=== PATIENT | female | born 1985 | race Caucasian/White ===

== ENCOUNTER 2018-12-01 14:57 | Emergency (ER) | payer BC ==
[2018-12-01 16:03] LABS: ABS Basophils 0.1 10^3/ul (0-0.2); ABS Eosinophils 0.1 10^3/ul (0-0.6); ABS Lymphocytes 2.5 10^3/ul (1.0-4.8); ABS Monocytes 0.6 10^3/ul (0-0.8); ABS Neutrophils 3.8 10^3/ul (1.5-7.7); ABS Nucleated RBC 0 10^3/ul; Eosinophil % 1.5 %; Hematocrit 38 % (35-47); Hemoglobin 13.2 g/dl (12.0-16.0); Lymphocyte % 35.1 %; Mean Corpuscular HGB Conc 35 g/dl (31-36); Mean Corpuscular Hemoglobin 28 pg (27-31); Mean Corpuscular Volume 81 fL (80-97); Mean Platelet Volume 7.3 fL (7.4-10.4); Nucleated Red Blood Cells % 0; Platelet Count 279 10^3/ul (150-450); Red Blood Count 4.71 10^6/ul (4.00-5.40); Red Cell Distribution Width 15 % (10.5-15)
[2018-12-01 16:20] LABS: ALT 43 U/L (7-52); AST 28 U/L (13-39); Albumin/Globulin Ratio 1.7 (1-3); Alkaline Phosphatase 33 U/L (34-104); Anion Gap 10 mmol/L (2-11); BUN/Creatinine Ratio 16.8 (8-20); Blood Urea Nitrogen 16 mg/dL (6-24); CO2 Carbon Dioxide 24 mmol/L (22-32); Calcium 10.2 mg/dL (8.6-10.3); Chloride 103 mmol/L (101-111); EGFR Non-African American 68.2 (>60); Globulin 2.9 g/dL (2-4); Glucose 94 mg/dL (70-100); Sodium 137 mmol/L (135-145); Total Protein 7.9 g/dL (6.4-8.9)
[2018-12-01 16:26] LABS: HCG Pregnancy < 0.60 mIU/mL
[2018-12-01 16:30] LABS: Activated Partial Thrombo Time 32.5 seconds (26.0-36.3); INR 0.94 (0.77-1.02)
--- NOTE | 2018-12-01 19:33 | ED ---
HPI Chest Pain - HPI Summary HPI Summary: Patient complains of 4 episodes of chest tightness and palpitations today. Symptoms are intermittent, random onset, not related to exertion, lasting 1-2 seconds at a time. Patient states history of same, diagnosed with PACs by primary care. Patient denies fever, cough, sore throat, SOB, N/V/D, abdominal pain, change in urine, change in BM. Medical history is HTN, HDL. Nonsmoker. Denies EtOH, recreational drug use, excessive caffeine or energy drinks. - History of Current Complaint Chief Complaint: EDChestPainROMI Time Seen by Provider: 12/01/18 15:37 Hx Obtained From: Patient Onset/Duration: Started Hours Ago Timing: Intermittent, Lasting Seconds Initial Severity: Moderate Current Severity: Moderate Pain Intensity: 6 Pain Scale Used: 0-10 Numeric Chest Pain Location: Mid Sternal Chest Pain Radiates: No Character: Sharp/Stabbing Aggravating Factor(s): Nothing Alleviating Factor(s): Nothing Associated Signs and Symptoms: Positive: Chest Pain - Allergy/Home Medications Allergies/Adverse Reactions: Allergies Allergy/AdvReac Type Severity Reaction Status Date / Time No Known Allergies Allergy Verified 12/01/18 16:00 Home Medications: Home Medications Gemfibrozil 600 mg PO DAILY 12/01/18 [History Confirmed 12/01/18] Labetalol HCl 100 mg PO BID 12/01/18 [History Confirmed 12/01/18] amLODIPine TAB* [Norvasc 5 mg TAB*] 5 mg PO DAILY 12/01/18 [History Confirmed ] PMH/Surg Hx/FS Hx/Imm Hx Endocrine/Hematology History: Denies: Hx Anticoagulant Therapy Cardiovascular History: Reports: Hx Hypertension History: Denies: Hx Dialysis Sensory History: Denies: Hx Eye Prosthesis EENT History: Denies: Hx Deafness Neurological History: Denies: Hx Developmental Delay Psychiatric History: Denies: Hx Autism Infectious Disease History: No Infectious Disease History: Denies: Traveled Outside the [place] in Last 30 Days - Social History Alcohol Use: Rare Substance Use Type: Reports: None Smoking Status (MU): Never Smoked Tobacco Review of Systems Constitutional: Negative Eyes: Negative ENT: Negative Positive: Chest Pain Respiratory: Negative Gastrointestinal: Negative Genitourinary: Negative Musculoskeletal: Negative Skin: Negative Neurological: Negative Psychological: Normal All Other Systems Reviewed And Are Negative: Yes Physical Exam - Summary Physical Exam Summary: Chest pain not reproducible. Triage Information Reviewed: Yes Vital Signs On Initial Exam: Initial Vitals Temp Pulse Resp BP Pulse Ox 99.1 F 98 16 197/122 98 12/01/18 14:58 12/01/18 14:58 12/01/18 14:58 12/01/18 14:58 12/01/18 14:58 Vital Signs Reviewed: Yes Appearance: Positive: Well-Appearing Skin: Positive: Warm Head/Face: Positive: Normal Head/Face Inspection Eyes: Positive: Normal Neck: Positive: Supple Respiratory/Lung Sounds: Positive: Clear to Auscultation Cardiovascular: Positive: Normal Abdomen Description: Positive: Nontender Musculoskeletal: Positive: Normal Neurological: Positive: Normal Psychiatric: Positive: Normal AVPU Assessment: Alert - [place] Coma Scale Best Eye Response: 4 - Spontaneous Best Motor Response: 6 - Obeys Commands Best Verbal Response: 5 - Oriented Coma Scale Total: 15 Diagnostics - Vital Signs Vital Signs Temp Pulse Resp BP Pulse Ox 12/01/18 19:16 87 23 145/89 96 12/01/18 19:00 88 22 97 12/01/18 18:46 85 20 152/89 98 12/01/18 18:16 84 19 160/94 96 12/01/18 18:00 82 20 98 12/01/18 17:46 89 26 162/92 97 12/01/18 17:16 87 21 165/96 97 12/01/18 17:00 87 19 96 12/01/18 16:46 82 18 163/79 96 12/01/18 16:16 98 19 155/84 99 12/01/18 16:06 78 14 156/91 98 12/01/18 16:00 88 22 97 12/01/18 15:46 85 96 12/01/18 15:45 94 97 12/01/18 14:58 99.1 F 98 16 197/122 98 - Laboratory Lab Results: Lab Results 12/01/18 12/01/18 12/01/18 Range/Units 15:02 15:02 15:02 WBC 7.0 (3.5-10.8) 10^3/ul RBC 4.71 (4.00-5.40) 10^6/ul Hgb 13.2 (12.0-16.0) g/dl Hct 38 (35-47) % MCV 81 (80-97) fL MCH 28 (27-31) pg MCHC 35 (31-36) g/dl RDW 15 (10.5-15) % Plt Count 279 (150-450) 10^3/ul MPV 7.3 L (7.4-10.4) fL Neut % (Auto) 54.2 % Lymph % (Auto) 35.1 % [place] % (Auto) 8.1 % Eos % (Auto) 1.5 % Baso % (Auto) 1.1 % Absolute Neuts (auto) 3.8 (1.5-7.7) 10^3/ul Absolute Lymphs (auto) 2.5 (1.0-4.8) 10^3/ul Absolute Monos (auto) 0.6 (0-0.8) 10^3/ul Absolute Eos (auto) 0.1 (0-0.6) 10^3/ul Absolute Basos (auto) 0.1 (0-0.2) 10^3/ul Absolute Nucleated RBC 0 10^3/ul Nucleated RBC % 0 INR (Anticoag Therapy) (0.77-1.02) APTT (26.0-36.3) seconds D-Dimer, Quantitative (Less Than 230) ng/mL Sodium 137 (135-145) mmol/L Potassium 4.0 (3.5-5.0) mmol/L Chloride 103 (101-111) mmol/L Carbon Dioxide 24 (22-32) mmol/L Anion Gap 10 (2-11) mmol/L BUN 16 (6-24) mg/dL Creatinine 0.95 (0.51-0.95) mg/dL Est GFR ( Amer) 82.5 (>60) Est GFR (Non-Af Amer) 68.2 (>60) BUN/Creatinine Ratio 16.8 (8-20) Glucose 94 (70-100) mg/dL Lactic Acid 1.5 (0.5-2.0) mmol/L Calcium 10.2 (8.6-10.3) mg/dL Magnesium 2.0 (1.9-2.7) mg/dL Total Bilirubin 0.30 (0.2-1.0) mg/dL AST 28 (13-39) U/L ALT 43 (7-52) U/L Alkaline Phosphatase 33 L (34-104) U/L Troponin I 0.00 (<0.04) ng/mL B-Natriuretic Peptide (<=100) pg/mL Total Protein 7.9 (6.4-8.9) g/dL Albumin 5.0 (3.2-5.2) g/dL Globulin 2.9 (2-4) g/dL Albumin/Globulin Ratio 1.7 (1-3) Beta HCG, Quant < 0.60 mIU/mL 12/01/18 12/01/18 12/01/18 Range/Units 15:02 15:02 17:49 WBC (3.5-10.8) 10^3/ul RBC (4.00-5.40) 10^6/ul Hgb (12.0-16.0) g/dl Hct (35-47) % MCV (80-97) fL MCH (27-31) pg MCHC (31-36) g/dl RDW (10.5-15) % Plt Count (150-450) 10^3/ul MPV (7.4-10.4) fL Neut % (Auto) % Lymph % (Auto) % [place] % (Auto) % Eos % (Auto) % Baso % (Auto) % Absolute Neuts (auto) (1.5-7.7) 10^3/ul Absolute Lymphs (auto) (1.0-4.8) 10^3/ul Absolute Monos (auto) (0-0.8) 10^3/ul Absolute Eos (auto) (0-0.6) 10^3/ul Absolute Basos (auto) (0-0.2) 10^3/ul Absolute Nucleated RBC 10^3/ul Nucleated RBC % INR (Anticoag Therapy) 0.94 (0.77-1.02) APTT 32.5 (26.0-36.3) seconds D-Dimer, Quantitative < 200 (Less Than 230) ng/mL Sodium (135-145) mmol/L Potassium (3.5-5.0) mmol/L Chloride (101-111) mmol/L Carbon Dioxide (22-32) mmol/L Anion Gap (2-11) mmol/L BUN (6-24) mg/dL Creatinine (0.51-0.95) mg/dL Est GFR ( Amer) (>60) Est GFR (Non-Af Amer) (>60) BUN/Creatinine Ratio (8-20) Glucose (70-100) mg/dL Lactic Acid (0.5-2.0) mmol/L Calcium (8.6-10.3) mg/dL Magnesium (1.9-2.7) mg/dL Total Bilirubin (0.2-1.0) mg/dL AST (13-39) U/L ALT (7-52) U/L Alkaline Phosphatase (34-104) U/L Troponin I 0.00 (<0.04) ng/mL B-Natriuretic Peptide 9 (<=100) pg/mL Total Protein (6.4-8.9) g/dL Albumin (3.2-5.2) g/dL Globulin (2-4) g/dL Albumin/Globulin Ratio (1-3) Beta HCG, Quant mIU/mL Result Diagrams: 12/01/18 15:02 12/01/18 15:02 Lab Statement: Any lab studies that have been ordered have been reviewed, and results considered in the medical decision making process. Chest Pain Course/Dx - Course Course Of Treatment: Patient complains of 4 episodes of chest tightness and palpitations today. Symptoms are intermittent, random onset, not related to exertion, lasting 1-2 seconds at a time. Patient states history of same, diagnosed with PACs by primary care. Patient denies fever, cough, sore throat, SOB, N/V/D, abdominal pain, change in urine, change in BM. Medical history is HTN, HDL. Nonsmoker. Denies EtOH, recreational drug use, excessive caffeine or energy drinks. Denies OCP, history of blood clots, recent surgery or trauma , recent long travel. Physical exam: Chest pain not reproducible. Denies active symptoms while here in the ED. Vital signs within normal limits. EKG sinus rhythm with PACs. Chest x-ray unremarkable. Labs unremarkable. Serial troponins negative. Follow-up with primary care or cardiology for Holter monitor. Patient understands and approves of plan. - Diagnoses Provider Diagnoses: Atypical chest pain Discharge - Sign-Out/Discharge Documenting (check all that apply): Patient Departure - Discharge Plan Condition: Stable Disposition: HOME Patient Education Materials: Chest Pain (ED) Referrals: Cirilo Gorman MD [Primary Care Provider] - Additional Instructions: Follow-up with primary care or energy and sustainability manager Dr. Trent to arrange for Holter monitor. Return to the ED for any new or worsening symptoms - Billing Disposition and Condition Condition: STABLE Disposition: Home
[2018-12-01 19:48] VITALS: BP 144/87
== END 2018-12-01 19:48 | disposition home or self-care (01) ==
LOC: ED 14:57
DX: R07.89 Other chest pain (principal); I10 Essential (primary) hypertension; E78.5 Hyperlipidemia, unspecified
CPT/HCPCS: 36415; 71045; 80053; 83605; 83735; 83880; 84484; 84702; 85025; 85379; 85610; 85730; 93005; 99283

== ENCOUNTER 2019-03-20 23:11 | Emergency (ER) | payer BC ==
[2019-03-21] MEDS ORDERED: Labetalol TAB* 100 MG PO ONE (00:42)
[2019-03-21] MEDS ORDERED: Labetalol TAB* 200 MG ONE (00:52)
--- NOTE | 2019-03-21 00:53 | ED ---
HPI Chest Pain - HPI Summary HPI Summary: Pt is a 33 y/o F presenting to the ED with an episode of left sided chest pain starting at 2200 on 03/20/2019. Pt states that the pain was "sharp" and she felt " tingling" in her neck during the episode. Pt reports that the episode "lasted seconds". She rates the pain 5/10, Sx are no longer present. Sx were similar to an episode that occurred months ago. Pt denies N/V, diaphoresis and SOB. In Triage the Pt was hypertensive. Pt denies cardiac hx other than Htn and takes Labetalol 100 mg BID and Amlodipine 5 mg for Htn. Pt took her night dosage of Labetalol 100 mg prior to arrival to ED. Nothing is noted aggravate/alleviate Sx. - History of Current Complaint Chief Complaint: EDChestPainROMI Time Seen by Provider: 03/21/19 00:23 Hx Obtained From: Patient Onset/Duration: Started Hours Ago, Resolved Time of Onset: 22:00 Timing: Intermittent, Lasting Seconds Initial Severity: Moderate Current Severity: None Pain Intensity: 5 Pain Scale Used: 0-10 Numeric Chest Pain Location: Left Anterior Character: Sharp/Stabbing Aggravating Factor(s): Nothing Alleviating Factor(s): Nothing Associated Signs and Symptoms: Positive: Chest Pain, Tingling - AT NECK. Negative: Shortness of Breath, Diaphoresis, Nausea, Vomiting - Allergy/Home Medications Allergies/Adverse Reactions: Allergies Allergy/AdvReac Type Severity Reaction Status Date / Time No Known Allergies Allergy Verified 03/20/19 23:18 PMH/Surg Hx/FS Hx/Imm Hx Endocrine/Hematology History: Denies: Hx Anticoagulant Therapy Cardiovascular History: Reports: Hx Hypertension History: Denies: Hx Dialysis Sensory History: Denies: Hx Eye Prosthesis, Hx Deafness Opthamlomology History: Denies: Hx Eye Prosthesis Neurological History: Denies: Hx Developmental Delay Psychiatric History: Denies: Hx Autism Infectious Disease History: No Infectious Disease History: Denies: Traveled Outside the [place] in Last 30 Days - Family History Known Family History: Positive: Cardiac Disease - Social History Alcohol Use: Rare Substance Use Type: Reports: None Smoking Status (MU): Never Smoked Tobacco Review of Systems Negative: Skin Diaphoresis ENT: Other - "TINGLING" OF NECK Positive: Chest Pain - L SIDED Negative: Shortness Of Breath Negative: Vomiting, Nausea All Other Systems Reviewed And Are Negative: Yes Physical Exam - Summary Physical Exam Summary: VITAL SIGNS: Reviewed. GENERAL: Patient is a well-developed and nourished FEMALE who is lying comfortable in the stretcher. Patient is not in any acute respiratory distress. HEAD AND FACE: No signs of trauma. No ecchymosis, hematomas or skull depressions. No sinus tenderness. EYES: PERRLA, EOMI x 2, No injected conjunctiva, no nystagmus. EARS: Hearing grossly intact. Ear canals and tympanic membranes are within normal limits. MOUTH: Oropharynx within normal limits. NECK: Supple, trachea is midline, no adenopathy, no JVD, no carotid bruit, no c- spine tenderness, neck with full ROM CHEST: Symmetric, no tenderness at palpation LUNGS: Clear to auscultation bilaterally. No wheezing or crackles. CVS: Regular rate and rhythm, S1 and S2 present, no murmurs or gallops appreciated. ABDOMEN: Soft, non-tender. No signs of distention. No rebound no guarding, and no masses palpated. Bowel sounds are normal. EXTREMITIES: FROM in all major joints, no edema, no cyanosis or clubbing. NEURO: Alert and oriented x 3. No acute neurological deficits. Speech is normal and follows commands. SKIN: Dry and warm Triage Information Reviewed: Yes Vital Signs On Initial Exam: Initial Vitals Temp Pulse Resp BP Pulse Ox 98.0 F 92 16 170/111 99 03/20/19 23:13 03/20/19 23:13 03/20/19 23:13 03/20/19 23:13 03/20/19 23:13 Vital Signs Reviewed: Yes Diagnostics - Vital Signs Vital Signs Temp Pulse Resp BP Pulse Ox 03/20/19 23:13 98.0 F 92 16 170/111 99 - Laboratory Result Diagrams: 03/21/19 00:49 03/21/19 00:49 Lab Statement: Any lab studies that have been ordered have been reviewed, and results considered in the medical decision making process. - EKG No standard instances Summary of EKG Findings: EKG: sinus rhythm normal P axis, V-rate 60-99, normal EKG 2333 Cardiac Rate: NL - RATE OF 80 BPM EKG Rhythm: Sinus Rhythm Summary of EKG Findings: EKG showed sinus rhythm with rate of 80 BPM, normal axis, normal interval, no ischemic changes. Chest Pain Course/Dx - Course Course Of Treatment: Pt is a 33 y/o F presenting to the ED with an episode of left sided chest pain starting at 2200 on 03/20/2019. Pt states that the pain was "sharp" and she felt " tingling" in her neck during the episode. Pt reports that the episode "lasted seconds". She rates the pain 5/10, Sx are no longer present. Sx were similar to an episode that occurred months ago. Pt denies N/V, diaphoresis and SOB. In Triage the Pt was hypertensive. Pt denies cardiac hx other than HTN and takes Labetalol 100 mg BID and Amlodipine 5 mg for HTN. EKG shows sinus rhythm with rate of 80 BPM, normal axis, normal interval, and no ischemic changes. Plan of care and follow up with Primary Care Physician were discussed with the Pt who is agreeable with discharge to home. - Diagnoses Provider Diagnoses: Atypical chest pain Discharge - Sign-Out/Discharge Documenting (check all that apply): Patient Departure - discharge Patient Received Moderate/Deep Sedation with Procedure: No - Discharge Plan Condition: Stable Disposition: HOME Patient Education Materials: Chest Pain (ED) Referrals: Arianne Boone MD [Primary Care Provider] - 3 Days Additional Instructions: PLEASE RETURN TO THE ED IMMEDIATELY FOR WORSENING OR CONCERNING SYMPTOMS. FOLLOW UP WITH YOUR PRIMARY CARE PHYSICIAN WITHIN THE NEXT THREE DAYS. - Attestation Statements Document Initiated by Scribe: Yes Documenting Scribe: KRYSTAL SWIFT Provider For Whom Scribe is Documenting (Include Credential): GIOVANNI FERREIRA MD Scribe Attestation: KRYSTAL Cantu AND GULSHAN SWIFT, scribed for GIOVANNI FERREIRA MD on 03/21/19 at 0303. Status of Scribe Document: Ready
[2019-03-21 00:57] LABS: ABS Basophils 0.1 10^3/ul (0-0.2); ABS Eosinophils 0.1 10^3/ul (0-0.6); ABS Lymphocytes 2.9 10^3/ul (1.0-4.8); ABS Monocytes 0.7 10^3/ul (0-0.8); ABS Neutrophils 5.3 10^3/ul (1.5-7.7); Eosinophil % 0.8 %; Hematocrit 38 % (35-47); Hemoglobin 12.9 g/dL (12.0-16.0); Lymphocyte % 31.8 %; Mean Corpuscular HGB Conc 34 g/dL (31-36); Mean Corpuscular Hemoglobin 28 pg (27-31); Mean Corpuscular Volume 83 fL (80-97); Mean Platelet Volume 7.2 fL (7.4-10.4); Nucleated Red Blood Cells % 0.1; Platelet Count 288 10^3/uL (150-450); Red Blood Count 4.55 10^6 /uL (3.70-4.87); Red Cell Distribution Width 14 % (10.5-15); White Blood Count 9.1 10^3/uL (3.5-10.8)
[2019-03-21 01:14] LABS: ALT 15 U/L (7-52); Albumin 4.5 g/dL (3.2-5.2); Albumin/Globulin Ratio 1.6 (1-3); Alkaline Phosphatase 28 U/L (34-104); BUN/Creatinine Ratio 19.6 (8-20); Blood Urea Nitrogen 19 mg/dL (6-24); CO2 Carbon Dioxide 21 mmol/L (22-32); Calcium 9.7 mg/dL (8.6-10.3); Chloride 104 mmol/L (101-111); EGFR African American 80.5 (>60); EGFR Non-African American 66.6 (>60); Globulin 2.8 g/dL (2-4); Glucose 111 mg/dL (70-100); Sodium 135 mmol/L (135-145); Total Protein 7.3 g/dL (6.4-8.9)
[2019-03-21 01:21] LABS: HCG Pregnancy 2.81 mIU/mL
[2019-03-21 01:26] LABS: Activated Partial Thrombo Time 29.7 seconds (26.0-36.3); Anion Gap 10 mmol/L (2-11); INR 0.95 (0.82-1.09)
[2019-03-21 02:18] VITALS: BP 145/75
== END 2019-03-21 02:17 | disposition home or self-care (01) ==
LOC: ED 23:11
DX: R07.89 Other chest pain (principal); I10 Essential (primary) hypertension
CPT/HCPCS: 36415; 80053; 84484; 84702; 85025; 85610; 85730; 93005; 99282; A9270-GY

== ENCOUNTER → 2019-03-26 21:48 | Emergency (ER) | payer BC ==
--- NOTE | 2019-03-26 23:04 | ED ---
HPI Chest Pain - HPI Summary HPI Summary: Patient complains of episode of chest tightness, tingling in neck, tingling in left arm and left shoulder, lightheadedness 1 hour. Symptoms started at 8:30 and ended approximately 9:30pm. History of same times years. Patient states she will Holter monitor 2 years ago was diagnosed with PVCs. No active symptoms here in the ED. Denies recent CP or SOB with exertion. Admits to occasional similar symptoms with anxiety. Denies fever, cough, sore throat, SOB , N/V/D, abdominal pain, change in urine, change in BM. Medical is HTN. Currently taking prednisone for fertility is they are trying to become . Denies caffeine, energy drinks, methamphetamine, cocaine, EtOH. - History of Current Complaint Chief Complaint: EDDizziness Time Seen by Provider: 03/26/19 22:43 Hx Obtained From: Patient, Family/Political Worker Onset/Duration: Started Hours Ago Timing: Constant, Lasting Minutes Initial Severity: Moderate Current Severity: None Pain Intensity: 0 Pain Scale Used: 0-10 Numeric Chest Pain Location: Mid Sternal Chest Pain Radiates To:: Arm, Neck Character: Tightness Aggravating Factor(s): Nothing Alleviating Factor(s): Nothing Associated Signs and Symptoms: Positive: Chest Pain, Lightheadedness - Allergy/Home Medications Allergies/Adverse Reactions: Allergies Allergy/AdvReac Type Severity Reaction Status Date / Time No Known Allergies Allergy Verified 03/26/19 21:56 PMH/Surg Hx/FS Hx/Imm Hx Endocrine/Hematology History: Denies: Hx Anticoagulant Therapy Cardiovascular History: Reports: Hx Hypertension History: Denies: Hx Dialysis Sensory History: Denies: Hx Eye Prosthesis, Hx Deafness Opthamlomology History: Denies: Hx Eye Prosthesis Neurological History: Denies: Hx Developmental Delay Psychiatric History: Denies: Hx Autism Infectious Disease History: No Infectious Disease History: Denies: Traveled Outside the [place] in Last 30 Days - Family History Known Family History: Positive: Cardiac Disease - Social History Alcohol Use: Rare Substance Use Type: Reports: None Smoking Status (MU): Never Smoked Tobacco Review of Systems Constitutional: Negative Eyes: Negative ENT: Negative Positive: Chest Pain Respiratory: Negative Gastrointestinal: Negative Genitourinary: Negative Musculoskeletal: Negative Skin: Negative Neurological: Negative Psychological: Normal All Other Systems Reviewed And Are Negative: Yes Physical Exam - Summary Physical Exam Summary: Chest pain reproducible. Lung sounds clear to auscultation bilaterally. RRR. Abdomen soft nontender. No peripheral edema. Triage Information Reviewed: Yes Vital Signs On Initial Exam: Initial Vitals Temp Pulse Resp BP Pulse Ox 97.9 F 80 16 182/112 98 03/26/19 21:55 03/26/19 21:55 03/26/19 21:55 03/26/19 21:55 03/26/19 21:55 Vital Signs Reviewed: Yes Appearance: Positive: Well-Appearing Skin: Positive: Warm Head/Face: Positive: Normal Head/Face Inspection Eyes: Positive: Normal ENT: Positive: Normal ENT inspection Neck: Positive: Supple Respiratory/Lung Sounds: Positive: Clear to Auscultation Cardiovascular: Positive: Normal Abdomen Description: Positive: Nontender Musculoskeletal: Positive: Normal Neurological: Positive: Normal Psychiatric: Positive: Normal AVPU Assessment: Alert - [place] Coma Scale Best Eye Response: 4 - Spontaneous Best Motor Response: 6 - Obeys Commands Best Verbal Response: 5 - Oriented Coma Scale Total: 15 Diagnostics - Vital Signs Vital Signs Temp Pulse Resp BP Pulse Ox 03/26/19 21:55 97.9 F 80 16 182/112 98 - Laboratory Result Diagrams: 03/26/19 23:09 03/26/19 23:09 Lab Statement: Any lab studies that have been ordered have been reviewed, and results considered in the medical decision making process. Chest Pain Course/Dx - Course Course Of Treatment: Patient complains of episode of chest tightness, tingling in neck, tingling in left arm and left shoulder, lightheadedness 1 hour. Symptoms started at 8:30 and ended approximately 9:30pm. History of same times years. Patient states she will Holter monitor 2 years ago was diagnosed with PVCs. No active symptoms here in the ED. Denies recent CP or SOB with exertion. Admits to occasional similar symptoms with anxiety. Denies fever, cough, sore throat, SOB, N/V/D, abdominal pain, change in urine, change in BM. Medical is HTN. Currently taking prednisone for fertility is they are trying to become . Denies caffeine, energy drinks, methamphetamine, cocaine, EtOH. Physical exam:Chest pain reproducible. Lung sounds clear to auscultation bilaterally. RRR. Abdomen soft nontender. No peripheral edema. Vital signs within normal limits. EKG sinus rhythm. Labs unremarkable. Patient refused second troponin. Multiple prior evaluations for same symptoms with negative cardiac workups. - Diagnoses Provider Diagnoses: Atypical chest pain Discharge - Sign-Out/Discharge Documenting (check all that apply): Patient Departure Patient Received Moderate/Deep Sedation with Procedure: No - Discharge Plan Condition: Stable Disposition: HOME Patient Education Materials: Chest Pain (ED) Referrals: Arianne Boone MD [Primary Care Provider] - Additional Instructions: Follow-up with primary care for potential further evaluation with Holter monitor. Return to the ED for any new or worsening symptoms. - Billing Disposition and Condition Condition: STABLE Disposition: Home
[2019-03-26 23:18] LABS: ABS Basophils 0.1 10^3/ul (0-0.2); ABS Eosinophils 0.1 10^3/ul (0-0.6); ABS Lymphocytes 2.7 10^3/ul (1.0-4.8); ABS Monocytes 0.6 10^3/ul (0-0.8); ABS Neutrophils 6.2 10^3/ul (1.5-7.7); Eosinophil % 0.9 %; Hematocrit 37 % (35-47); Hemoglobin 12.3 g/dL (12.0-16.0); Lymphocyte % 27.6 %; Mean Corpuscular HGB Conc 34 g/dL (31-36); Mean Corpuscular Hemoglobin 28 pg (27-31); Mean Corpuscular Volume 82 fL (80-97); Mean Platelet Volume 6.8 fL (7.4-10.4); Nucleated Red Blood Cells % 0.1; Platelet Count 306 10^3/uL (150-450); Red Blood Count 4.46 10^6 /uL (3.70-4.87); Red Cell Distribution Width 15 % (10.5-15); White Blood Count 9.7 10^3/uL (3.5-10.8)
[2019-03-26 23:22] LABS: INR 1.03 (0.82-1.09)
[2019-03-26 23:41] LABS: Albumin 4.5 g/dL (3.2-5.2); Albumin/Globulin Ratio 1.6 (1-3); BUN/Creatinine Ratio 16.3 (8-20); C Reactive Protein 7.17 mg/L (<8.01); Calcium 9.9 mg/dL (8.6-10.3); EGFR African American 92.5 (>60); EGFR Non-African American 76.5 (>60); Globulin 2.9 g/dL (2-4); Potassium 3.5 mmol/L (3.5-5.0); Total Bilirubin 0.5 mg/dL (0.2-1.0); Total Protein 7.4 g/dL (6.4-8.9)
[2019-03-27 01:41] VITALS: BP 147/85
== END | disposition home or self-care (01) ==
LOC: ED 21:48
DX: R07.89 Other chest pain (principal); R42 Dizziness and giddiness; I10 Essential (primary) hypertension
CPT/HCPCS: 36415; 71045; 80053; 84484; 85025; 85610; 86140; 93005; 99283

== ENCOUNTER 2019-05-05 00:50 | Emergency (ER) | payer BC ==
--- OUTSIDE RECORDS SUMMARY | 2019-05-05 00:59 | XMS REPORT | Continuity of Care Document ---
:1985 External Reference #:[id number] Author Name Rachel Sotomayor Care Team Providers Name Role Phone Arianne Boone M.D. Primary Care Physician Unavailable Payers Date Identification Numbers Payment Provider Subscriber Effective: 2017 Policy Number: [id number] MARK Burton PayID: [id number] [address] [address] PETER Fowler [id number] Advance Directives Type Date Description Status Comment Other Directive 10/14/2018 Health Care Proxy Current and Verified Problems Active Problems Provider Date Migraine with typical aura Cirilo Gorman M.D. Onset: 09/12/2018 Morbid obesity Cirilo Gorman M.D. Onset: 02/08/2018 Obesity Cirilo Gorman M.D. Onset: 02/08/2018 Abnormal glucose level Cirilo Gorman M.D. Onset: 02/08/2018 Pure hyperglyceridemia Cirilo Gorman M.D. Onset: 02/08/2018 Essential hypertension Cirilo Gorman M.D. Onset: 02/08/2018 Family History Date Family Member(s) Observation Comments Father Hypertension : (age 76 Years) Paternal Grandfather due to CHF Social History Type Date Description Comments Sex Unknown Lives With and 3 y/o daughter Occupation [employer] Tobacco Use Start: Unknown Never Smoked Cigarettes ETOH Use Rarely consumes alcohol Recreational Drug Use Never Used Drugs Tobacco Use Start: Unknown Patient has never smoked Smoking Status Reviewed: 04/29/19 Patient has never smoked Exercise Type/Frequency Does not exercise Allergies, Adverse Reactions, Alerts Description No Known Drug Allergies Medications Active Medications SIG Qnty Indications Ordering Provider Date Escitalopram Oxalate 1 by mouth every 30tabs F41.9 Arianne Boone MD 2018 10mg day in in the Tablets morning, with food Hydroxyzine HCL 1-2 tabs by 60tabs F41.9 Arianne Boone MD 03/28/2019 25mg mouth three Tablets times a day as needed anxiety Amlodipine Besylate one by mouth 30tabs I10 Arianne Boone MD 12/04/2018 10mg daily Tablets Labetalol HCL 1 by mouth twice 60tabs I10 Arianne Boone MD 10/01/2018 100mg a day Tablets Sumatriptan Succinate use at onset of 14tabs G43.109 Cirilo Gorman, 11/2017 head ache,march M.D. 100mg Tablets repeat after 2h as needed Aspirin 81 1 by mouth every Unknown 81mg Tablets day DR History Medications Amlodipine Besylate 1 by mouth 30tabs Cirilo Gorman, 10/02/2018 - every day in am M.D. 12/04/2018 5mg Tablets Gemfibrozil ( Not Taking ) 60tabs E78.1 Arianne Boone MD 09/12/2018 - 600mg 1 by mouth 04/28/2019 Tablets twice a day Labetalol HCL take 1 tab now 30tabs I10 Cirilo Gorman, 02/08/2018 - 100mg then take 1/2 M.D. 10/01/2018 Tablets tablet by mouth two times a day Labetalol HCL 1 by mouth Unknown - 100mg twice a day 09/12/2018 Tablets Prednisone taper dosing Unknown - 5mg 04/28/2019 Tablets Metformin HCL take one tablet Unknown - 1000mg by mouth twice 04/28/2019 Tablets a day Immunizations CPT Code Status Date Vaccine Lot # [id number] Given 09/08/2018 Influenza Virus Vaccine, Quadrivalent, Split, Preservative Free Vital Signs Date Vital Result Comment 04/29/2019 2:16pm Height 63 inches 5'3" Weight 210.00 lb Heart Rate 66 /min BP Systolic Sitting 134 mmHg BP Diastolic Sitting 86 mmHg Body Temperature 97.1 F O2 % BldC Oximetry 98 % BMI (Body Mass Index) 37.2 kg/m2 03/28/2019 10:07am Height 63 inches 5'3" Weight 209.50 lb Heart Rate 87 /min BP Systolic 146 mmHg BP Diastolic 88 mmHg Body Temperature 97.6 F O2 % BldC Oximetry 98 % BMI (Body Mass Index) 37.1 kg/m2 12/04/2018 8:03am Height 63 inches 5'3" Weight 231.00 lb Heart Rate 77 /min BP Systolic Sitting 154 mmHg BP Diastolic Sitting 100 mmHg Body Temperature 96.9 F O2 % BldC Oximetry 98 % BMI (Body Mass Index) 40.9 kg/m2 10/14/2018 8:16am Height 63 inches 5'3" Weight 229.00 lb Heart Rate 88 /min BP Systolic Sitting 170 mmHg BP Diastolic Sitting 100 mmHg Body Temperature 97.4 F O2 % BldC Oximetry 97 % BMI (Body Mass Index) 40.6 kg/m2 09/19/2018 9:59am Height 63 inches 5'3" Weight 227.00 lb Heart Rate 94 /min BP Systolic Sitting 160 mmHg Right arm BP Diastolic Sitting 120 mmHg Right arm BP Systolic Standing 170 mmHg Left arm BP Diastolic Standing 136 mmHg Left arm Body Temperature 97.2 F O2 % BldC Oximetry 99 % BMI (Body Mass Index) 40.2 kg/m2 09/12/2018 1:58pm Height 63 inches 5'3" Weight 229.00 lb Heart Rate 113 /min BP Systolic 202 mmHg BP Diastolic 110 mmHg Body Temperature 97.3 F O2 % BldC Oximetry 97 % BMI (Body Mass Index) 40.6 kg/m2 09/12/2018 1:49pm Height 63 inches 5'3" Weight 229.00 lb Heart Rate 113 /min Body Temperature 97.9 F O2 % BldC Oximetry 97 % BMI (Body Mass Index) 40.6 kg/m2 02/08/2018 8:48am Height 63 inches 5'3" Weight 230.50 lb Heart Rate 79 /min BP Systolic Sitting 138 mmHg BP Diastolic Sitting 80 mmHg O2 % BldC Oximetry 98 % BMI (Body Mass Index) 40.8 kg/m2 Results Test Date Facility Test Result H/L Range Note Comp Metabolic Panel 03/26/2019 [facility] Sodium 137 mmol/L N 135-[address] [place] [address] [phone] Potassium 3.5 mmol/L N 3.5-5.0 Chloride 106 mmol/L N 101-111 Co2 Carbon Dioxide 21 mmol/L Low 22-32 Anion Gap 10 mmol/L N 2-11 Glucose 115 mg/dL High 70-100 Blood Urea Nitrogen 14 mg/dL N 6-24 Creatinine 0.86 mg/dL N 0.51-0.95 BUN/Creatinine Ratio 16.3 N 8-20 Calcium 9.9 mg/dL N 8.6-10.3 Total Protein 7.4 g/dL N 6.4-8.9 Albumin 4.5 g/dL N 3.2-5.2 Globulin 2.9 g/dL N 2-4 Albumin/Globulin Ratio 1.6 N 1-3 Total Bilirubin 0.50 mg/dL N 0.2-1.0 Alkaline Phosphatase 28 U/L Low 34-104 Alt 16 U/L N 7-52 Ast 11 U/L Low 13-39 Egfr Non- 76.5 >60 Egfr 92.5 >60 1 Laboratory test 03/26/2019 [facility] C Reactive 7.17 mg/L N < 8.[address] [place] [address] [phone] Troponin-I (TnI) 0.00 ng/mL <0.04 2 Laboratory test 03/21/2019 [facility] Partial 29.7 seconds N 26.0-36.[address] [place] [address] PTT [phone] CBC Auto Diff 03/21/2019 [facility] White Blood 9.1 10^3/uL N 3.5-10.[address] Count [place], [place] [id number] [phone] Red Blood Count 4.55 10^6/uL N 3.70-4.87 Hemoglobin 12.9 g/dL N 12.0-16.0 Hematocrit 38 % N 35-47 Mean Corpuscular Volume 83 fL N 80-97 Mean Corpuscular Hemoglobin 28 pg N 27-31 Mean Corpuscular HGB Conc 34 g/dL N 31-36 Red Cell Distribution Width 14 % N 10.5-15 Platelet Count 288 10^3/uL N 150-450 Mean Platelet Volume 7.2 fL Low 7.4-10.4 Abs Neutrophils 5.3 10^3/uL N 1.5-7.7 Abs Lymphocytes 2.9 10^3/uL N 1.0-4.8 Abs Monocytes 0.7 10^3/uL N 0-0.8 Abs Eosinophils 0.1 10^3/uL N 0-0.6 Abs Basophils 0.1 10^3/uL N 0-0.2 Abs Nucleated RBC 0.0 10^3/uL Granulocyte % 58.9 % Lymphocyte % 31.8 % Monocyte % 7.2 % Eosinophil % 0.8 % Basophil % 1.3 % Nucleated Red Blood Cells % 0.1 Comp Metabolic Panel 03/21/2019 [facility] Sodium 135 mmol/L N 135-145 [address] [place] [address] [phone] Chloride 104 mmol/L N 101-111 Co2 Carbon Dioxide 21 mmol/L Low 22-32 Glucose 111 mg/dL High 70-100 Blood Urea Nitrogen 19 mg/dL N 6-24 Creatinine 0.97 mg/dL High 0.51-0.95 BUN/Creatinine Ratio 19.6 N 8-20 Calcium 9.7 mg/dL N 8.6-10.3 Total Protein 7.3 g/dL N 6.4-8.9 Albumin 4.5 g/dL N 3.2-5.2 Globulin 2.8 g/dL N 2-4 Albumin/Globulin Ratio 1.6 N 1-3 Total Bilirubin 0.30 mg/dL N 0.2-1.0 Alkaline Phosphatase 28 U/L Low 34-104 Alt 15 U/L N 7-52 Egfr Non- 66.6 >60 Egfr 80.5 >60 3 Potassium TNP mmol/L 3.5-5.0 4 Anion Gap 10 mmol/L N 2-11 Ast TNP U/L 13-39 5 Inr/Protime 03/21/2019 [facility] Inr 0.95 N 0.82-1.[address] [place] [address] [phone] Laboratory test 03/21/2019 [facility] Troponin-I 0.00 ng/mL < 0.[address] (TnI) [place] [address] [phone] HCG 2.81 mIU/mL 8 Laboratory test 02/14/2019 [facility] HCG 9.37 mIU/mL [address] [place] [address] [phone] Estradiol 156 pg/mL 10 Progesterone 24.6 ng/mL 11 Laboratory test 12/01/2018 [facility] Troponin-I 0.00 ng/mL < 0.[address] (TnI) [place] [address] [phone] Laboratory test 12/01/2018 [facility] Partial Thrombo 32.5 N 26.0-36.[address] [place] [address] [phone] D Dimer Quantitative < 200 ng/mL N Less Than 230 13 Inr/Protime 12/01/2018 [facility] Inr 0.94 N 0.77-1.[address] [place] [address] [phone] Laboratory test 12/01/2018 [facility] Magnesium 2.0 mg/dL N 1.9-2.[address] [place] [address] [phone] Troponin-I (TnI) 0.00 ng/mL <0.04 14 HCG < 0.60 mIU/mL 15 Comp Metabolic Panel 12/01/2018 [facility] Sodium 137 mmol/L N 135-[address] [place] [address] [phone] Potassium 4.0 mmol/L N 3.5-5.0 Chloride 103 mmol/L N 101-111 Co2 Carbon Dioxide 24 mmol/L N 22-32 Anion Gap 10 mmol/L N 2-11 Glucose 94 mg/dL N 70-100 Blood Urea Nitrogen 16 mg/dL N 6-24 Creatinine 0.95 mg/dL N 0.51-0.95 BUN/Creatinine Ratio 16.8 N 8-20 Calcium 10.2 mg/dL N 8.6-10.3 Total Protein 7.9 g/dL N 6.4-8.9 Albumin 5.0 g/dL N 3.2-5.2 Globulin 2.9 g/dL N 2-4 Albumin/Globulin Ratio 1.7 N 1-3 Total Bilirubin 0.30 mg/dL N 0.2-1.0 Alkaline Phosphatase 33 U/L Low 34-104 Alt 43 U/L N 7-52 Ast 28 U/L N 13-39 Egfr Non- 68.2 >60 Egfr 82.5 >60 16 Laboratory test 12/01/2018 [facility] B-Type Natriuretic 9 pg/ mL <=[address] [place] [address] [phone] Lactic Acid 1.5 mmol/L N 0.5-2.0 17 CBC Auto Diff 12/01/2018 [facility] White Blood 7.0 10^3/uL N 3.5-10.[address] [place] [address] [phone] Red Blood Count 4.71 10^6/uL N 4.00-5.40 Hemoglobin 13.2 g/dL N 12.0-16.0 Hematocrit 38 % N 35-47 Mean Corpuscular Volume 81 fL N 80-97 Mean Corpuscular Hemoglobin 28 pg N 27-31 Mean Corpuscular HGB Conc 35 g/dL N 31-36 Red Cell Distribution Width 15 % N 10.5-15 Platelet Count 279 10^3/uL N 150-450 Mean Platelet Volume 7.3 fL Low 7.4-10.4 Abs Neutrophils 3.8 10^3/uL N 1.5-7.7 Abs Lymphocytes 2.5 10^3/uL N 1.0-4.8 Abs Monocytes 0.6 10^3/uL N 0-0.8 Abs Eosinophils 0.1 10^3/uL N 0-0.6 Abs Basophils 0.1 10^3/uL N 0-0.2 Abs Nucleated RBC 0 10^3/uL Granulocyte % 54.2 % Lymphocyte % 35.1 % Monocyte % 8.1 % Eosinophil % 1.5 % Basophil % 1.1 % Nucleated Red Blood Cells % 0 Lipid Profile 10/11/2018 [facility] Triglycerides 588 mg/dL 18, 19 (Trig/Chol/HDL) [address] [place] [address] [phone] Cholesterol 196 mg/dL 20 HDL Cholesterol 38.8 mg/dL 21 LDL Cholesterol (SEE NOTE) mg/dL 22 Laboratory test 10/11/2018 [facility] Aldosterone 13 ng/dL <= 21 [address] [place] [address] [phone] Cortisol 15.89 g/dL 24 TSH (Thyroid Stim Horm) 2.06 mcIU/mL N 0.34-5.60 25 Laboratory test 10/11/2018 [facility] LDL Cholesterol 77 mg/dL [address] [place] [address] [phone] Comp Metabolic 2018 [facility] Sodium 136 mmol/L N 135- [address] [place] [address] [phone] Potassium 4.1 mmol/L N 3.5-5.0 Chloride 102 mmol/L N 101-111 Co2 Carbon Dioxide 23 mmol/L N 22-32 Anion Gap 11 mmol/L N 2-11 Glucose 118 mg/dL High 70-100 Blood Urea Nitrogen 17 mg/dL N 6-24 Creatinine 0.86 mg/dL N 0.51-0.95 BUN/Creatinine Ratio 19.8 N 8-20 Calcium 9.8 mg/dL N 8.6-10.3 Total Protein 7.8 g/dL N 6.4-8.9 Albumin 4.9 g/dL N 3.2-5.2 Globulin 2.9 g/dL N 2-4 Albumin/Globulin Ratio 1.7 N 1-3 Total Bilirubin 0.40 mg/dL N 0.2-1.0 Alkaline Phosphatase 46 U/L N 34-104 Alt 18 U/L N 7-52 Ast 52 U/L High 13-39 Egfr Non- 76.5 >60 Egfr 92.5 >60 27 Lipid Profile 2018 [facility] Cholesterol 234 mg/dL 28 (Trig/Chol/HDL) [address] [place] [address] [phone] HDL Cholesterol 36.7 mg/dL 29 Triglycerides 1305 mg/dL 30 LDL Cholesterol (SEE NOTE) mg/dL 31 Laboratory test 2018 [facility] LDL Cholesterol 62 mg/dL [address] [place] [address] [phone] Lipid Profile 02/08/2018 [facility] Cholesterol 226 mg/dL 33 (Trig/Chol/HDL) [address] [place] [address] [phone] HDL Cholesterol 34.3 mg/dL 34 Triglycerides 1082 mg/dL 35 LDL Cholesterol (SEE NOTE) mg/dL 36 Comp Metabolic Panel 02/08/2018 [facility] Sodium 136 mmol/L Low 139-145 [address] [place] [address] [phone] Potassium 4.3 mmol/L N 3.5-5.0 Chloride 102 mmol/L N 101-111 Co2 Carbon Dioxide 23 mmol/L N 22-32 Anion Gap 11 mmol/L N 2-11 Glucose 103 mg/dL High 70-100 Blood Urea Nitrogen 15 mg/dL N 6-24 Creatinine 0.74 mg/dL N 0.51-0.95 BUN/Creatinine Ratio 20.3 High 8-20 Calcium 9.6 mg/dL N 8.6-10.3 Total Protein 7.4 g/dL N 6.4-8.9 Albumin 4.6 g/dL N 3.2-5.2 Globulin 2.8 g/dL N 2-4 Albumin/Globulin Ratio 1.6 N 1-3 Total Bilirubin 0.50 mg/dL N 0.2-1.0 Alkaline Phosphatase 41 U/L N 34-104 Alt 35 U/L N 7-52 Ast 23 U/L N 13-39 Egfr Non- 91.5 >60 Egfr 117.7 >60 37 Laboratory test 02/08/2018 [facility] Hemoglobin A1c 5.6 % N 4.0-5.6 [address] (Glyco HGB) [place] [address] [phone] TSH (Thyroid Stim Horm) 1.59 mcIU/mL N 0.34-5.60 Cortisol 9.31 g/dL 39 LDL Cholesterol Direct 49 mg/dL 40 1 Because ethnic data is not always readily available, this report includes an eGFR for both -Americans and non- Americans. The National Kidney Disease Education Program (NKDEP) does not endorse the use of the MDRD equation for patients that are not between the ages of 18 and 70, are , have extremes of body size, muscle mass, or nutritional status, or are non- or non-. According to the National Kidney Foundation, irrespective of diagnosis, the stage of the disease is based on the level of kidney function: Stage Description GFR(mL/min/1.73 m(2)) 1 Kidney damage with normal or decreased GFR 90 2 Kidney damage with mild decrease in GFR 60-89 3 Moderate decrease in GFR 30-59 4 Severe decrease in GFR 15-29 5 Kidney failure <15 (or dialysis) 2 Troponin-I testing on Plasma Separator Tubes (PST) has a known false positive rate of 0.20-0.40%. All positive troponins reflex immediately to secondary confirmatory testing. Using the [employer] DxI 800 Access Immunoassay systems, the 99th percentile upper reference limit was demonstrated to be < 0.03 ng/mL. 3 Because ethnic data is not always readily available, this report includes an eGFR for both -Americans and non- Americans. The National Kidney Disease Education Program (NKDEP) does not endorse the use of the MDRD equation for patients that are not between the ages of 18 and 70, are , have extremes of body size, muscle mass, or nutritional status, or are non- or non-. According to the National Kidney Foundation, irrespective of diagnosis, the stage of the disease is based on the level of kidney function: Stage Description GFR(mL/min/1.73 m(2)) 1 Kidney damage with normal or decreased GFR 90 2 Kidney damage with mild decrease in GFR 60-89 3 Moderate decrease in GFR 30-59 4 Severe decrease in GFR 15-29 5 Kidney failure <15 (or dialysis) 4 Specimen Hemolyzed. Result may not be valid. Unable to report test result due to hemolysis. 5 Unable to report test result due to hemolysis. 6 Standard intensity warfarin therapeutic range: 2.0-3.0 High intensity warfarin therapeutic range: 2.5-3.5 7 Troponin-I testing on Plasma Separator Tubes (PST) has a known false positive rate of 0.20-0.40%. All positive troponins reflex immediately to secondary confirmatory testing. Using the [employer] DxI 800 Access Immunoassay systems, the 99th percentile upper reference limit was demonstrated to be < 0.03 ng/mL. 8 <5.0 Negative 5.0 - 25.0 Indeterminate (Repeat testing recommended after 72 hours) >25.0 Positive Perimenopausal women can display HCG levels of up to 20 mIU/mL 9 <5.0 Negative 5.0 - 25.0 Indeterminate (Repeat testing recommended after 72 hours) >25.0 Positive Perimenopausal women can display HCG levels of up to 20 mIU/mL 10 Estradiols <40 pg/mL are sent to a reference lab for low range testing. Postmenopausal Females < 20 Ovulating females: by day in cycle relative to LH Peak Follicular phase - 12 10-50 - 4 60-200 Mid-cycle - 1 120-375 Luteal phase + 2 50-155 + 6 60-260 + 12 15-115 11 Female reference ranges for Progesterone: Follicular phase.......0.3 - 1.5 ng/ml Mid-luteal phase.......5.2 - 18.5 ng/ml Postmenopausal.........< 0.8 ng/ml 1st trimester.........4.7 - 50.0 ng/ml 2nd trimester.........19.4 - 45.3 ng/ml 12 Troponin-I testing on Plasma Separator Tubes (PST) has a known false positive rate of 0.20-0.40%. All positive troponins reflex immediate secondary confirmatory testing. 13 Please note: The following may produce a false positive D Dimer test: - Rheumatoid factor greater than 60 IU/ml - Plasma hemoglobin greater than 0.05 gm/dl - Bilirubin greater than 50 mg/dl - Lipids greater than 1000 mg/dl - FDP greater than 20 ug/ml 14 Troponin-I testing on Plasma Separator Tubes (PST) has a known false positive rate of 0.20-0.40%. All positive troponins reflex immediate secondary confirmatory testing. 15 <5.0 Negative 5.0 - 25.0 Indeterminate (Repeat testing recommended after 72 hours) >25.0 Positive Perimenopausal women can display HCG levels of up to 20 mIU/mL 16 Because ethnic data is not always readily available, this report includes an eGFR for both -Americans and non- Americans. The National Kidney Disease Education Program (NKDEP) does not endorse the use of the MDRD equation for patients that are not between the ages of 18 and 70, are , have extremes of body size, muscle mass, or nutritional status, or are non- or non-. According to the National Kidney Foundation, irrespective of diagnosis, the stage of the disease is based on the level of kidney function: Stage Description GFR(mL/min/1.73 m(2)) 1 Kidney damage with normal or decreased GFR 90 2 Kidney damage with mild decrease in GFR 60-89 3 Moderate decrease in GFR 30-59 4 Severe decrease in GFR 15-29 5 Kidney failure <15 (or dialysis) 17 [facility] Severe Sepsis and Septic Shock Management Bundle Measure requires all lactic acids initially measuring >2.0 mmol/L be repeated. 18 FASTING 19 Desirable: <150 Borderline High: 150-199 High: 200-499 Very High: >500 20 Desirable: <200 Borderline High: 200-239 High: >239 21 Low: <40 Desirable: 40-60 High: >60 22 Unable to calculate LDL as triglyceride is > 400 23 ADDITIONAL INFORMATION Reference range for patients 11 years and older is based on upright A.M. collection from subjects without sodium restrictions. This test was developed and its performance characteristics determined by [facility] in a manner consistent with CLIA requirements. This test has not been cleared or approved by the U.S. Food and Drug Administration. Test Performed by: [facility] [address] [place] [address] 24 AM 8.7-22.4 PM <10 25 FASTING 26 Desirable: <100 Near Optimal: 100-129 Borderline High: 130-159 High: 160-189 Very High: >189 27 Because ethnic data is not always readily available, this report includes an eGFR for both -Americans and non- Americans. The National Kidney Disease Education Program (NKDEP) does not endorse the use of the MDRD equation for patients that are not between the ages of 18 and 70, are , have extremes of body size, muscle mass, or nutritional status, or are non- or non-. According to the National Kidney Foundation, irrespective of diagnosis, the stage of the disease is based on the level of kidney function: Stage Description GFR(mL/min/1.73 m(2)) 1 Kidney damage with normal or decreased GFR 90 2 Kidney damage with mild decrease in GFR 60-89 3 Moderate decrease in GFR 30-59 4 Severe decrease in GFR 15-29 5 Kidney failure <15 (or dialysis) 28 Desirable: <200 Borderline High: 200-239 High: >239 29 Low: <40 Desirable: 40-60 High: >60 30 Desirable: <150 Borderline High: 150-199 High: 200-499 Very High: >500 31 Unable to calculate LDL as triglyceride is > 400 32 Desirable: <100 Near Optimal: 100-129 Borderline High: 130-159 High: 160-189 Very High: >189 33 Desirable: <200 Borderline High: 200-239 High: >239 34 Low: <40 Desirable: 40-60 High: >60 35 Desirable: <150 Borderline High: 150-199 High: 200-499 Very High: >500 36 Unable to calculate LDL as triglyceride is > 400 37 Because ethnic data is not always readily available, this report includes an eGFR for both -Americans and non- Americans. The National Kidney Disease Education Program (NKDEP) does not endorse the use of the MDRD equation for patients that are not between the ages of 18 and 70, are , have extremes of body size, muscle mass, or nutritional status, or are non- or non-. According to the National Kidney Foundation, irrespective of diagnosis, the stage of the disease is based on the level of kidney function: Stage Description GFR(mL/min/1.73 m(2)) 1 Kidney damage with normal or decreased GFR 90 2 Kidney damage with mild decrease in GFR 60-89 3 Moderate decrease in GFR 30-59 4 Severe decrease in GFR 15-29 5 Kidney failure <15 (or dialysis) 38 Therapeutic target for the treatment of diabetes mellitus patients is <7% HBA1C, and in selective patients <6.0%. Please refer to [place] [employer] diabetic care guidelines for further information. 39 AM 8.7-22.4 PM <10 40 Desirable: <100 Near Optimal: 100-129 Borderline High: 130-159 High: 160-189 Very High: >189 Procedures Date Code Description Status 10/26/2015 28558 Holter Monitor Review (24 hr)dr dubois & jeanine only Completed Encounters Type Date Location Provider Dx Diagnosis Office Visit 03/28/2019 Simran Boone MD F41.9 Anxiety disorder, 10:00a Medicine - [facility] unspecified I10 Essential (primary) hypertension Office Visit 12/04/2018 8:00a Simran Boone MD I10 Essential (primary) Medicine - Suite hypertension R Office Visit 10/14/2018 8:20a Simran Kerr I10 Essential (primary) Medicine - Suite Eric Gorman hypertension R E78.1 Pure hyperglyceridemia Office Visit 09/19/2018 [facility] [place] E78.1 Pure hyperglyceridemia 10:00a Michelle Gorman M.D. Suite R I15.9 Secondary hypertension, unspecified G43.109 Migraine with aura, not intractable, w/o status migrainosus Office Visit 09/12/2018 2:00p [facility] Cirilo Gorman, I10 Essential (primary) Medicine - Eric hypertension Suite R E78.1 Pure hyperglyceridemia G43.109 Migraine with aura, not intractable, w/o status migrainosus Office Visit 02/08/2018 9:00a [facility] Cirilo Gorman, I10 Essential (primary) Medicine - Eric hypertension Suite R E78.1 Pure hyperglyceridemia R73.9 Hyperglycemia, unspecified E66.8 Other obesity E66.01 Morbid (severe) obesity due to excess calories Z00.00 Encntr for general adult medical exam w/o abnormal findings Plan of Treatment Future Appointment(s):06/11/2019 3:00 pm - [facility] am - Jennifer Adamson LCSW at [facility] - [facility]05/07/2019 3:00 pm - Jennifer Adamson LCSW at [facility] - [facility]04/29/2019 - Arianne Boone MDI10 Essential (primary) hypertensionComments:Continue with your current medication.F41.9 Anxiety disorder, unspecifiedNew Medication:Escitalopram Oxalate 10 mg - 1 by mouth every day in in the morning, with foodFollow up:6 ueeqkG62.2 PalpitationsNew Orders:Holter Monitor, Ordered: 04/29/19
[2019-05-05] MEDS ORDERED: Meclizine TAB* 12.5 MG PO ONE (03:41)
[2019-05-05 03:56] LABS: ABS Eosinophils 0.1 10^3/ul (0-0.6); ABS Lymphocytes 2.8 10^3/ul (1.0-4.8); ABS Monocytes 0.5 10^3/ul (0-0.8); ABS Neutrophils 6.3 10^3/ul (1.5-7.7); Eosinophil % 0.8 %; Hematocrit 36 % (35-47); Hemoglobin 12.6 g/dL (12.0-16.0); Lymphocyte % 28.5 %; Mean Corpuscular HGB Conc 35 g/dL (31-36); Mean Corpuscular Hemoglobin 28 pg (27-31); Mean Corpuscular Volume 80 fL (80-97); Nucleated Red Blood Cells % 0.2; Platelet Count 365 10^3/uL (150-450); Red Blood Count 4.46 10^6 /uL (3.70-4.87); Red Cell Distribution Width 14 % (10-15); White Blood Count 9.7 10^3/uL (3.5-10.8)
[2019-05-05 04:21] LABS: ALT 15 U/L (7-52); AST 9 U/L (13-39); Albumin 4.6 g/dL (3.2-5.2); Albumin/Globulin Ratio 1.6 (1-3); Alkaline Phosphatase 34 U/L (34-104); Anion Gap 9 mmol/L (2-11); BUN/Creatinine Ratio 26.2 (8-20); Blood Urea Nitrogen 22 mg/dL (6-24); CO2 Carbon Dioxide 21 mmol/L (22-32); Calcium 9.5 mg/dL (8.6-10.3); Chloride 104 mmol/L (101-111); EGFR African American 95.1 (>60); EGFR Non-African American 78.6 (>60); Globulin 2.9 g/dL (2-4); Glucose 111 mg/dL (70-100); Magnesium 2.1 mg/dL (1.9-2.7); Potassium 3.9 mmol/L (3.5-5.0); Sodium 134 mmol/L (135-145); Total Protein 7.5 g/dL (6.4-8.9)
[2019-05-05 04:28] LABS: HCG Pregnancy < 0.60 mIU/mL
[2019-05-05 05:35] VITALS: BP 149/89
[2019-05-05] MEDS ORDERED: ALPRAZolam TAB* 0.5 MG PO ONE (05:36)
--- NOTE | 2019-05-05 07:29 | ED ---
Dizziness - HPI Summary HPI Summary: Patient is a 33 y/o F presenting to ED with complaints of dizziness characterized as a light-headedness onsetting 2300 05/04/19. She reports dizziness onset when she was walking to use the restroom. Patient also notes that she felt "hot" and nauseous at the time. Dizziness and nausea are still present but to a lesser degree. On triage, pain is denied, nothing is noted to aggravate/alleviate Sx. Home medications and allergies are reviewed. - History Of Current Complaint Chief Complaint: EDDizziness Stated Complaint: "TINGLING IN LEGS/DIZZY" PER PT Time Seen by Provider: 05/05/19 03:17 Hx Obtained From: Patient Onset/Duration: Still Present Timing: Hours Severity Currently: None Character: Lightheaded, Dizzy Aggravating Factor(s): Nothing Alleviating Factor(s): Nothing Associated Signs And Symptoms: Positive: Nausea, Other: - felt "hot" - Allergies/Home Medications Allergies/Adverse Reactions: Allergies Allergy/AdvReac Type Severity Reaction Status Date / Time No Known Allergies Allergy Verified 05/05/19 00:53 Home Medications: Home Medications Escitalopram * [Lexapro 10 mg (NF)] 10 mg PO DAILY 05/05/19 [History Confirmed 05/05/19] PMH/Surg Hx/FS Hx/Imm Hx Endocrine/Hematology History: Denies: Hx Anticoagulant Therapy Cardiovascular History: Reports: Hx Hypertension History: Denies: Hx Dialysis Sensory History: Denies: Hx Eye Prosthesis, Hx Deafness Opthamlomology History: Denies: Hx Eye Prosthesis Neurological History: Denies: Hx Developmental Delay Psychiatric History: Denies: Hx Autism Infectious Disease History: No Infectious Disease History: Denies: Traveled Outside the [place] in Last 30 Days - Family History Known Family History: Positive: Cardiac Disease - Social History Alcohol Use: Rare Substance Use Type: Reports: None Smoking Status (MU): Never Smoked Tobacco Review of Systems Constitutional: Other - positive - felt "hot" Positive: Nausea Neurological: Other - positive - dizziness All Other Systems Reviewed And Are Negative: Yes Physical Exam - Summary Physical Exam Summary: VITAL SIGNS: Reviewed. GENERAL: Patient is a well-developed and nourished female who is lying comfortable in the stretcher. Patient is not in any acute respiratory distress. HEAD AND FACE: No signs of trauma. No ecchymosis, hematomas or skull depressions. No sinus tenderness. EYES: PERRLA, EOMI x 2, No injected conjunctiva, no nystagmus. EARS: Hearing grossly intact. Ear canals and tympanic membranes are within normal limits. MOUTH: Oropharynx within normal limits. NECK: Supple, trachea is midline, no adenopathy, no JVD, no carotid bruit, no c- spine tenderness, neck with full ROM CHEST: Symmetric, no tenderness at palpation LUNGS: Clear to auscultation bilaterally. No wheezing or crackles. CVS: Regular rate and rhythm, S1 and S2 present, no murmurs or gallops appreciated. ABDOMEN: Soft, non-tender. No signs of distention. No rebound no guarding, and no masses palpated. Bowel sounds are normal. EXTREMITIES: FROM in all major joints, no edema, no cyanosis or clubbing. NEURO: Alert and oriented x 3. No acute neurological deficits. Speech is normal and follows commands. SKIN: Dry and warm Triage Information Reviewed: Yes Vital Signs On Initial Exam: Initial Vitals Temp Pulse Resp BP Pulse Ox 98.0 F 82 16 173/111 100 05/05/19 00:51 05/05/19 00:51 05/05/19 00:51 05/05/19 00:51 05/05/19 00:51 Vital Signs Reviewed: Yes Diagnostics - Vital Signs Vital Signs Temp Pulse Resp BP Pulse Ox 05/05/19 05:47 98.3 F 86 16 149/89 97 05/05/19 05:32 149/89 05/05/19 05:00 85 25 97 05/05/19 04:52 92 13 152/95 98 05/05/19 04:22 72 20 136/83 96 05/05/19 04:00 70 26 97 05/05/19 03:52 68 16 137/85 97 05/05/19 03:29 73 17 97 05/05/19 03:22 73 21 168/95 98 05/05/19 00:51 98.0 F 82 16 173/111 100 - Laboratory Lab Results: Lab Results 05/05/19 05/05/19 Range/Units 03:49 03:49 WBC 9.7 (3.5-10.8) 10^3/uL RBC 4.46 (3.70-4.87) 10^6 /uL Hgb 12.6 (12.0-16.0) g/dL Hct 36 (35-47) % MCV 80 (80-97) fL MCH 28 (27-31) pg MCHC 35 (31-36) g/dL RDW 14 (10-15) % Plt Count 365 (150-450) 10^3/uL MPV 7.0 L (7.4-10.4) fL Neut % (Auto) 64.9 % Lymph % (Auto) 28.5 % Hanson % (Auto) 5.6 % Eos % (Auto) 0.8 % Baso % (Auto) 0.2 % Absolute Neuts (auto) 6.3 (1.5-7.7) 10^3/ul Absolute Lymphs (auto) 2.8 (1.0-4.8) 10^3/ul Absolute Monos (auto) 0.5 (0-0.8) 10^3/ul Absolute Eos (auto) 0.1 (0-0.6) 10^3/ul Absolute Basos (auto) 0.0 (0-0.2) 10^3/ul Absolute Nucleated RBC 0.0 10^3/ul Nucleated RBC % 0.2 Sodium 134 L (135-145) mmol/L Potassium 3.9 (3.5-5.0) mmol/L Chloride 104 (101-111) mmol/L Carbon Dioxide 21 L (22-32) mmol/L Anion Gap 9 (2-11) mmol/L BUN 22 (6-24) mg/dL Creatinine 0.84 (0.51-0.95) mg/dL Est GFR ( Amer) 95.1 (>60) Est GFR (Non-Af Amer) 78.6 (>60) BUN/Creatinine Ratio 26.2 H (8-20) Glucose 111 H (70-100) mg/dL Calcium 9.5 (8.6-10.3) mg/dL Magnesium 2.1 (1.9-2.7) mg/dL Total Bilirubin 0.30 (0.2-1.0) mg/dL AST 9 L (13-39) U/L ALT 15 (7-52) U/L Alkaline Phosphatase 34 (34-104) U/L Total Protein 7.5 (6.4-8.9) g/dL Albumin 4.6 (3.2-5.2) g/dL Globulin 2.9 (2-4) g/dL Albumin/Globulin Ratio 1.6 (1-3) Beta HCG, Quant < 0.60 mIU/mL Result Diagrams: 05/05/19 03:49 05/05/19 03:49 Lab Statement: Any lab studies that have been ordered have been reviewed, and results considered in the medical decision making process. Re-Evaluation - Re-Evaluation First Eval Re-Evaluation Time: 05:44 Comment: Patient was going to be discharged to home with prescription for antivert. However, when she was being discharged, she states that she is experiencing BUE tingling. Xanax 0.5 mg was dispensed to the patient and she was discharged to home. Dizzy Course/Dx - Course Course Of Treatment: Patient is a 33 y/o F presenting to ED with complaints of dizziness characterized as a light-headedness onsetting 2300 05/04/19. She reports dizziness onset when she was walking to use the restroom. Patient also notes that she felt "hot" and nauseous at the time. Dizziness and nausea are still present but to a lesser degree. Physical exam is unremarkable. Labs showed MPV 7, sodium 134, carbon dioxide 21, BUN/creatinine ratio 26.2, glucose 111, AST 9, Beta HCG < 0.60. During ED course, patient received antivert 25 mg PO. Patient was going to be discharged to home with prescription for antivert. However, when she was being discharged, she states that she is experiencing BUE tingling. Xanax 0.5 mg was dispensed to the patient and she was discharged to home. - Diagnoses Provider Diagnoses: Vertigo Discharge - Sign-Out/Discharge Documenting (check all that apply): Patient Departure - discharge Patient Received Moderate/Deep Sedation with Procedure: No - Discharge Plan Condition: Stable Disposition: HOME Prescriptions: Meclizine TAB* [Antivert 12.5 TAB*] 25 mg PO TID PRN #20 tab PRN Reason: Dizziness Patient Education Materials: Vertigo (ED), Dizziness (ED) Referrals: Arianne Boone MD [Primary Care Provider] - Additional Instructions: PLEASE RETURN TO THE ED IMMEDIATELY FOR WORSENING OR CONCERNING SYMPTOMS. FOLLOW UP WITH YOUR PRIMARY CARE PHYSICIAN WITHIN THREE DAYS. - Attestation Statements Document Initiated by Scribe: Yes Documenting Scribe: KRYSTAL COLEMAN Provider For Whom Scribe is Documenting (Include Credential): GIOVANNI FERREIRA MD Scribe Attestation: I, KRYSTAL COLEMAN, scribed for GIOVANNI FERREIRA MD on 05/05/19 at 0730. Status of Scribe Document: Ready
== END 2019-05-05 05:47 | disposition home or self-care (01) ==
LOC: ED 00:50
DX: R42 Dizziness and giddiness (principal); Z79.899 Other long term (current) drug therapy
CPT/HCPCS: 36415; 80053; 83735; 84702; 85025; 99283; A9270-GY

== ENCOUNTER 2021-06-29 07:45 | Inpatient (IN) ==
[2021-06-29] MEDS ORDERED: Lactated Ringers 1000 ml BAG 1,000 ML IV ONE (07:56)
[2021-06-29] MEDS ORDERED: Buffered Lidocaine 1% SYRIN 1 ml INTRADERM ONE (07:56)
[2021-06-29] MEDS ORDERED: Sodium Citrate/Citric Acid LIQ 15 ML UDC PO ONE (07:56)
[2021-06-29] MEDS ORDERED: ceFOXitin 2 GM PREMIX 50 ML IVPB ONE (08:00)
[2021-06-29] MEDS ORDERED: Lactated Ringers 1000 ml BAG 1,000 ML IV SCH ×2 (08:00→14:00)
[2021-06-29] MEDS ORDERED: Morphine PF AMP (0.5MG/ML) 5 MG/10 ML AMP ONE (08:15)
[2021-06-29] MEDS ORDERED: fentaNYL 100 mcg/2 ml 50 MCG/ML VIAL ONE (08:15)
[2021-06-29 08:21] LABS: Hematocrit 36 % (35-47); Hemoglobin 12.3 g/dL (12.0-16.0); Mean Corpuscular HGB Conc 34 g/dL (31-36); Mean Corpuscular Hemoglobin 29 pg (27-31); Mean Corpuscular Volume 87 fL (80-97); Mean Platelet Volume 9.6 fL (7.4-10.4); Platelet Count 167 10^3/uL (150-450); Red Cell Distribution Width 16 % (10-15); White Blood Count 6.3 10^3/uL (3.5-10.8)
[2021-06-29 09:49] LABS: RBC Morphology Normal (Normal)
[2021-06-29] MEDS ORDERED: Phenylephrine 40 mcg/mL 10mL (400mcg) SYRINGE ONE (09:50)
[2021-06-29 09:53] LABS: ABS Basophils 0.1 10^3/ul (0-0.2); ABS Lymphocytes 1.7 10^3/ul (1.0-4.8); ABS Monocytes 0.4 10^3/ul (0-0.8); Eosinophil % 0.7 %; Lymphocyte % 27.1 %
[2021-06-29] MEDS ORDERED: Dexamethasone IV 4 MG/ML VIAL 1 ml VIAL ONE (09:53)
[2021-06-29] MEDS ORDERED: Ondansetron 4 mg VIAL 2 MG/ML 2 ml VIAL ONE (09:53)
[2021-06-29] MEDS ORDERED: Oxytocin 10 UNITS/ML 1 ML VIAL ONE (09:53)
[2021-06-29] MEDS ORDERED: Ondansetron 4 mg VIAL 2 MG/ML 2 ml VIAL IV PRN (10:22)
[2021-06-29] MEDS ORDERED: DiMENhydriNATE IV 50 mg/ml 1 ml VIAL IV PUSH PRN (10:22)
[2021-06-29] MEDS ORDERED: diPHENhydraMINE IV 50 MG/ML 1 ml VIAL (BENADRYL) IV PRN (10:22)
[2021-06-29] MEDS ORDERED: oxyCODONE/Acetamin 5/325 mg TAB PO PRN (10:22)
[2021-06-29] MEDS ORDERED: Naloxone 0.4 mg VIAL 0.4 mg/ml 1 ml VIAL IV PRN (10:22)
[2021-06-29 10:50] LABS: Urine Appearance Clear; Urine Bilirubin Negative (Negative); Urine Blood Negative (Negative); Urine Color Straw; Urine Glucose Negative (Negative); Urine Ketones Negative (Negative); Urine Nitrite Negative (Negative); Urine Protein Negative (Negative); Urine Specific Gravity 1.005 (1.002-1.030); Urine Urobilinogen Negative (Negative)
[2021-06-29] MEDS ORDERED: Oxytocin in LR 20 UNITS/1,000 ML BAG IVPB ONE (11:21)
[2021-06-29 11:35] LABS: Urine Benzodiazepine Screen None Detected (None Detect); Urine Cannabinoids Screen None Detected (None Detect); Urine Opiates Screen None Detected (None Detect)
[2021-06-29] MEDS ORDERED: Witch Hazel PAD JAR TOPICAL PRN (13:55)
[2021-06-29] MEDS ORDERED: Measles, Mumps,Rubella VACC 0.5 ML/VIAL SUBCUT ONE (13:55)
[2021-06-29] MEDS ORDERED: Dibucaine 1% OINT 28.35 GM TUBE PR PRN (13:55)
[2021-06-29] MEDS ORDERED: Glycerin ADULT 2.4 gm SUPP PR PRN (13:55)
[2021-06-29] MEDS ORDERED: Oxytocin in LR 20 UNITS/1,000 ML BAG IVPB SCH (14:00)
[2021-06-30 08:30] LABS: ABS Basophils 0.1 10^3/ul (0-0.2); ABS Lymphocytes 2.6 10^3/ul (1.0-4.8); ABS Monocytes 0.8 10^3/ul (0-0.8); ABS Neutrophils 4.9 10^3/ul (1.5-7.7); Eosinophil % 0.5 %; Hematocrit 33 % (35-47); Hemoglobin 11.1 g/dL (12.0-16.0); Lymphocyte % 31.5 %; Mean Corpuscular HGB Conc 34 g/dL (31-36); Mean Corpuscular Hemoglobin 29 pg (27-31); Mean Corpuscular Volume 87 fL (80-97); Mean Platelet Volume 9.3 fL (7.4-10.4); Nucleated Red Blood Cells % 0.1; Platelet Count 149 10^3/uL (150-450); Red Blood Count 3.79 10^6 /uL (3.70-4.87); Red Cell Distribution Width 16 % (10-15); White Blood Count 8.4 10^3/uL (3.5-10.8)
[2021-07-01 07:52] VITALS: BP 141/87
[2021-07-01] MEDS ORDERED: Measles, Mumps,Rubella VACC 0.5 ML/VIAL ONE (12:05)
[2021-07-03] MEDS ORDERED: Scopolamine PATCH Remove NOTE PATCH OFF PRN (02:22)
== END 2021-07-01 14:01 | disposition home or self-care (01) | DRG 540 ==
LOC: MCHOBOUT 07:45 → MCHOB 07:48
PROVIDERS: ADMIT Obstetrics & Gynecology; ATTEND Obstetrics & Gynecology